=== PATIENT | female | born 2000 | race Caucasian/White ===

== ENCOUNTER → 2023-10-15 09:51 | Outpatient (BNVA) | payer MEDICAID, SELFPAY | PROVIDERS: Family Provider Nurse Practitioner Family; PCP Nurse Practitioner Family; Referring Provider Registered Nurse; Visit Provider Nurse Practitioner Women's Health | DX: Z34.90 Encounter for supervision of normal pregnancy, unspecified, unspecified trimester (principal) | CPT/HCPCS: 81000; 84702; 85025; 86850; 86900 ==

== ENCOUNTER → 2023-10-18 14:00 | Outpatient (BNVA) | payer MEDICAID, SELFPAY | PROVIDERS: Family Provider Nurse Practitioner Family; PCP Nurse Practitioner Family; Visit Provider Obstetrics & Gynecology | DX: Z32.01 Encounter for pregnancy test, result positive (principal) | CPT/HCPCS: 84702 ==

== ENCOUNTER → 2023-10-22 10:02 | Outpatient (BNVA) | payer MEDICAID, SELFPAY | PROVIDERS: Family Provider Nurse Practitioner Family; PCP Nurse Practitioner Family; Visit Provider Obstetrics & Gynecology | DX: Z36.87 Encounter for antenatal screening for uncertain dates (principal) | CPT/HCPCS: 76817 ==

== ENCOUNTER → 2023-11-05 08:55 | Outpatient (BNVA) | payer MEDICAID, SELFPAY | PROVIDERS: Family Provider Nurse Practitioner Family; PCP Nurse Practitioner Family; Visit Provider Nurse Practitioner Women's Health | DX: Z34.90 Encounter for supervision of normal pregnancy, unspecified, unspecified trimester (principal) | CPT/HCPCS: 80307; 84315; 84439; 84443; 84481; 85025; 86592; 86762; 86803; 86850; 86900; 87086; 87340; 87491; 87591; 87806 ==

== ENCOUNTER → 2023-11-26 14:40 | Outpatient (BNVA) | payer MEDICAID, SELFPAY | PROVIDERS: Family Provider Nurse Practitioner Family; PCP Nurse Practitioner Family; Visit Provider Obstetrics & Gynecology | DX: Z34.90 Encounter for supervision of normal pregnancy, unspecified, unspecified trimester (principal) | CPT/HCPCS: 84315; 88175 ==

== ENCOUNTER → 2024-01-22 09:17 | Outpatient (BNVA) | payer MEDICAID, SELFPAY | PROVIDERS: Family Provider Nurse Practitioner Family; PCP Nurse Practitioner Family; Visit Provider Obstetrics & Gynecology | DX: Z34.92 Encounter for supervision of normal pregnancy, unspecified, second trimester (principal) | CPT/HCPCS: 76805 ==

== ENCOUNTER → 2024-02-18 08:31 | Outpatient (BNVA) | payer MEDICAID, SELFPAY | PROVIDERS: Family Provider Nurse Practitioner Family; PCP Nurse Practitioner Family; Visit Provider Obstetrics & Gynecology | DX: Z34.01 Encounter for supervision of normal first pregnancy, first trimester (principal) | CPT/HCPCS: 76816; 82950; 84315; 85025; 87491; 87591 ==

== ENCOUNTER → 2024-03-17 07:47 | Outpatient (BNVA) | payer BC, MEDICAID, SELFPAY | PROVIDERS: Family Provider Nurse Practitioner Family; PCP Nurse Practitioner Family; Visit Provider Obstetrics & Gynecology | DX: O21.9 Vomiting of pregnancy, unspecified (principal); O26.892 Other specified pregnancy related conditions, second trimester; Z67.91 Unspecified blood type, Rh negative; Z3A.09 9 weeks gestation of pregnancy; Z3A.28 28 weeks gestation of pregnancy | CPT/HCPCS: 84315; 85025 ==

== ENCOUNTER → 2024-05-12 07:45 | Outpatient (BNVA) | payer BC, MEDICAID, SELFPAY | PROVIDERS: Family Provider Nurse Practitioner Family; PCP Nurse Practitioner Family; Visit Provider Obstetrics & Gynecology | DX: Z34.90 Encounter for supervision of normal pregnancy, unspecified, unspecified trimester (principal) | CPT/HCPCS: 84315; 87081 ==

== ENCOUNTER 2024-05-19 09:57 | Outpatient (CLI) | payer BC, MEDICAID, SELFPAY ==
[2024-05-19 10:16] VITALS: BP 133/77; PULSE 100
[2024-05-19 10:31] VITALS: BP 130/61; PULSE 77
[2024-05-19 10:46] VITALS: BP 125/58; PULSE 82
[2024-05-19 10:51] VITALS: BMI 40.4
[2024-05-19 11:01] VITALS: BP 123/60; PULSE 80
== END 2024-05-19 11:26 | disposition home or self-care (01) ==
LOC: OPOB 10:00 → OBGYN 10:02
PROVIDERS: Visit Provider Obstetrics & Gynecology
DX: O16.9 Unspecified maternal hypertension, unspecified trimester (principal); Z3A.00 Weeks of gestation of pregnancy not specified
CPT/HCPCS: 59025; 84315

== ENCOUNTER 2024-06-05 02:23 | Inpatient (IN) | payer BC, MEDICAID, SELFPAY ==
[2024-06-04] VITALS (13 sets, daily range): BP systolic 121–188; BP diastolic 63–105; PULSE 74–102; BMI 42.0
[2024-06-04] MEDS: lactated ringers 1,000 ML 999 ML IV (22:45)
[2024-06-04 22:56] LABS: Basophils # 0.1 10^3/uL (0.0-0.1); Basophils % 0.4 %; Eosinophils # 0.1 10^3/uL (0.0-0.8); Eosinophils % 0.5 %; Hematocrit 32.8 % (36-47); Lymphocytes # 2.5 10^3/uL (0.8-4.8); Mean Corpuscular HGB Conc 33.2 g/dL (30-55); Mean Corpuscular Hemoglobin 29.3 pg (27-33); Mean Corpuscular Volume 88.2 fl (85-98); Mean Platelet Volume 10.6 fL (7.4-10.4); Monocytes # 0.9 10^3/uL (0.2-0.9); Monocytes % 6.5 %; Neutrophils # 10.42 10^3/uL (1.8-7.7); Neutrophils % 74.2 %; Nucleated Red Blood Cells % 0 %; Platelet Count 308 10^3/cmm (157-399); Red Blood Count 3.72 10^6/uL (3.85-5.65); Red Cell Distribution Width 13.7 % (12.1-15.1); White Blood Count 14.03 10^3/uL (3.29-11.43)
[2024-06-05] VITALS (123 sets, daily range): BP systolic 103–164; BP diastolic 51–115; PULSE 60–214; RESP 16–18; TEMP 36–36.2; O2SAT 82–99
[2024-06-05] MEDS: fentaNYL 50 mcg/mL INJ 2mL IVP ×3 (02:34→07:17)
--- NOTE | 2024-06-05 02:35 | P.HP_ITS ---
Providers/Chief Complaint 2 Admitting Physician: Boris Mason MD Primary BALANCE WHEEL FACER: Boris Mason MD Chief Complaint: contractions HPI BALANCE WHEEL FACER History of Present Illness Lata Mccauley is a 24 year old female 24 y.o. G1 EDC June 08, 2024 At 39 w 4 d No complications Presents to L&D c/o painful, regular uterine contractions No bleeding or fluid leakage + movements Present Details : 1 Para: 0 Labs Rubella: Immune RPR: Negative GBS: Negative Medications/Allergies Home Medications Medication Instructions Recorded Confirmed Last Taken Type PNV 153-FA 400 mcg-om3 35 mg-dha 1 tab PO DAILY 02/18/24 06/02/24 05/19/24 History 25 mg-epa 5 mg-fish oil chew tablet ( Gummies) Allergies Allergy/AdvReac Type Severity Reaction Status Date / Time No Known Allergies Allergy Verified 06/04/24 20:20 PFSH BALANCE WHEEL FACER 2 PFSH: Family History Grandmother Breast cancer Grandfather Colon cancer Heart disease High cholesterol Stroke Diabetes Father Hypertension Diabetes Denies family history of Ovarian cancer Depression Uterine cancer Thyroid disease Social History Smoking and tobacco/nicotine status: former use of tobacco/nicotine History History History 2 1 Term 0 0 Miscarriages/Ectopic 0 Living Children 0 Care DAMON Calculator 2 Estimated Delivery Date Method Current WG Current Estimate 06/08/24 Ultrasound #1 39w 4d Other Estimates 05/27/24 LMP (Certain) 41w 2d Vitals/I&O/Wt Last Vital Signs Temp 96.8 F L 06/05/24 11:01 Pulse 64 06/05/24 14:39 Resp 16 06/05/24 10:00 BP 109/56 06/05/24 14:39 Pulse Ox 94 06/05/24 09:49 O2 Del Method Room Air 06/05/24 07:49 06/04/24 06/05/24 06/05/24 22:59 06:59 14:59 Intake Total 2058.483 / 2058.483 Balance 2058.483 / 2058.483 Weight last 48 hrs Weight 230 lb Physical Exam 2 Narrative: Weight 231 lbs; 5?2? VS normal General crying due to pain from contractions Lungs: clear Cor: RRR FH 37 cm, cephalic Cervix: 1 cm / 50% / -3 / posterior Ext: no edema External monitor: + regular uterine contractions heart tracing good variability, + accelerations Urinary Catheter Management: Craig Latex: Cath Placed During This Visit: yes Urinary Catheter Date of Insertion: 06/05/24 Urinary Catheter Time of Insertion: 09:54 Data 06/04/24 22:30 Results Labs OB ([facility]): 2 Obstetrics US 02/18/24 Blood Type O Negative 06/04/24 Antibody Screen Negative 06/04/24 Hct 32.8 % (36-47) L 06/04/24 Hgb 10.90 g/dL (11.27-16.99) L 06/04/24 Rho(D) Type Rh negative 06/04/24 Plt Count 308 10^3/cmm (157-399) 06/04/24 Hep Bs Antigen Non-reactive (Nonreactive) 11/05/23 Hepatitis C Antibody Non-reactive (Nonreactive) 11/05/23 Rubella IgG Antibody 161.1 IU/mL (0.0-10.0) H 11/05/23 RPR Nonreactive (Nonreactive) 11/05/23 HIV 1&2 Ab & HIV 1 Ag Non-reactive (Non-Reactiv) 11/05/23 TSH 0.93 uIU/mL (0.27-4.20) 11/05/23 Free T4 1.19 ng/dL (0.82-1.77) 11/05/23 C.trachomatis RNA (TMA) Not detected (NOT DETECTED) N.gonorrhoeae RNA (TMA) Not detected (NOT DETECTED) T. vaginalis Amp RNA Not detected (NOT DETECTED) 02/18/24 Chlamydia/GC Comment See note 02/18/24 Glucose 1 Hr 50 gm 129 mg/dL (85-140) 02/18/24 Ser , Semi-Qnt 89921.00 mIU/mL 10/18/23 Urine Opiates Screen Negative ng/mL (Negative) 11/05/23 Ur Barbiturates Screen Negative ng/mL (Negative) 11/05/23 Ur Phencyclidine Scrn Negative ng/mL (Negative) 11/05/23 Ur Amphetamines Screen Negative ng/mL (Negative) 11/05/23 U Benzodiazepines Scrn Negative ng/mL (Negative) 11/05/23 Urine Cocaine Screen Negative ng/mL (Negative) 11/05/23 U Marijuana (THC) Screen Negative ng/mL (Negative) 11/05/23 Micro Urine Specimen 11/05/23 Pap Smear Interpret See note 11/26/23 A&P Assessment and plan (1) : 39 w 4 d With painful, regular uterine contractions Plan admit Expectant management Qualifiers: Weeks of gestation: 9 weeks Qualified Code(s): Z3A.09 - 9 weeks gestation of (2) Rh negative status during : Qualifiers: Trimester: second trimester Qualified Code(s): O26.892 - Other specified related conditions, second trimester; Z67.91 - Unspecified blood type, Rh negative Attestations 2 Medical Necessity Statement*: patient at 39 w 4 d, with painful uterine contractions Coding Level of Care Code Acute Code for Chg Fwd Diagnoses 9 weeks gestation of Z3A.09 Weeks of gestation: 9 weeks Rh negative status during in second trimester O26.892; Z67.91 Trimester: second trimester Time Spent (min) 60
--- NOTE | 2024-06-05 07:10 | P.PN_ITS ---
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 Subjective: Interval history: Fetus reassuring Feels painful, strong uterine contractions Patient crying Cervix: 1 cm / 50% / -3 / posterior Patient requests epidural Plan epidural Plan Pitocin per protocol Labor: Station: -3 Amniotic Membrane Status: Intact Monitor Mode: Palpation Contraction Pattern: Irregular Status: Category I Vitals/I&O/Wt Last Vital Signs Temp 96.8 F L 06/05/24 11:01 Pulse 73 06/05/24 14:53 Resp 16 06/05/24 10:00 BP 135/80 06/05/24 14:53 Pulse Ox 94 06/05/24 09:49 O2 Del Method Room Air 06/05/24 07:49 06/04/24 06/05/24 06/05/24 22:59 06:59 14:59 Intake Total 2058.483 / 2058.483 Balance 2058.483 / 2058. Weight last 48 hrs Weight 230 lb Physical Exam 2 Urinary Catheter Management: Craig Latex: Cath Placed During This Visit: yes Urinary Catheter Date of Insertion: 06/05/24 Urinary Catheter Time of Insertion: 09:54 Data 06/04/24 22:30 A&P Assessment and plan (1) Active labor: Attestations 2 Medical Necessity Statement*: patient at 39 w 4 d, admitted with painful contractions Coding Level of Care Code Acute Code for Chg Fwd Diagnoses Active labor Time Spent (min) 30
[2024-06-05] MEDS: lactated ringers 1,000 ML 999 ML IV ×2 (07:17→08:19)
[2024-06-05] MEDS: ROPivacaine syringe 100 MG/50 ML SYRINGE 10 MG EPIDURAL ×4 (09:09→21:12)
--- NOTE | 2024-06-05 09:30 | PC.NURSE ---
Epidural attempt x5 per Dr Aldridge. 6th attempt by Tim Richardson CRNA successful.
[2024-06-05] MEDS: dextrose 5%-lactated ringers 1,000 ML 125 ML IV ×2 (10:01→17:18)
[2024-06-05] MEDS: oxytocin 30 UNIT/500 ML BAG IV (10:01)
--- NOTE | 2024-06-05 10:15 | P.ANESASSM_ITS ---
Pre-Anesthetic Assessment Height/Weight: Height 1.57 m Weight 104.326 kg Temp Pulse Resp BP Pulse Ox O2 Del Method 97.2 F L 93 18 113/67 94 Room Air 06/05/24 09:11 06/05/24 10:08 06/05/24 07:17 06/05/24 10:08 06/05/24 09:49 06/05/24 07:49 Epidural Familial anesthetic complications: None Was Beta Adam taken within 24 hours: N/A Was Clonidine taken within 24 hours: N/A Social No alcohol and No tobacco Exam alert, oriented x 3, clear to auscultation bilaterally and regular rate & rhythm Airway Mallampati: Class III Dentition: full Anesthetic Plan ASA status: 2 Anesthesia: Regional (specify below) Risk of > 500 ml blood loss (7ml/kg in children): No Medications/Allergies Home Medications Medication Instructions Recorded Confirmed Last Taken Type PNV 153-FA 400 mcg-om3 35 mg-dha 1 tab PO DAILY 02/18/24 06/02/24 05/19/24 History 25 mg-epa 5 mg-fish oil chew tablet ( Gummies) Allergies Allergy/AdvReac Type Severity Reaction Status Date / Time No Known Allergies Allergy Verified 06/04/24 20:20 Current Medications Generic Name Dose Route Start Last Admin Trade Name Freq PRN Reason Stop Dose Admin Fentanyl 25 - 100 mcg 06/05/24 01:03 06/05/24 07:17 Fentanyl 50 Mcg/Ml Inj 2ml IVP 75 mcg Q1H PRN Administration SEVERE PAIN Dextrose/Lactated Ringer's 1,000 mls @ 125 mls/hr 06/05/24 01:15 06/05/24 10:01 Dextrose 5%-Lactated Ringers IV 125 mls/hr .Q8H TERRELL Administration Lactated Ringer's 1,000 mls @ 999 mls/hr 06/05/24 01:03 06/05/24 08:19 Lactated Ringers IV Infused .Q1H1M PRN Infusion Per L&D Rescitation Protocol Lactated Ringer's 1,000 mls @ 999 mls/hr 06/05/24 07:14 06/05/24 08:54 Lactated Ringers IV 500 mls/hr .Q1H1M PRN Infusion See label comments Ropivacaine 100 mg in 50 mls @ 10 mls/hr 06/05/24 07:15 06/05/24 09:09 Naropin Syringe EPIDURAL 10 mls/hr .Q5H TERRELL Administration Oxytocin 30 unit in 500 mls @ 1 mls/hr 06/05/24 07:45 06/05/24 10:01 Pitocin IV 1 milliunit/min .Q24H TERRELL 1 mls/hr Administration Protocol 1 MILLIUNIT/MIN PFSH Anesthesia Family History Grandmother Breast cancer Grandfather Colon cancer Heart disease High cholesterol Stroke Diabetes Father Hypertension Diabetes Denies family history of Ovarian cancer Depression Uterine cancer Thyroid disease Social History Smoking and tobacco/nicotine status: former use of tobacco/nicotine Female Reproductive History : 1 Data Anesthesia 06/04/24 22:30 Short CBC 06/04/24 Range/Units 22:30 WBC 14.03 H (3.29-11.43) 10^3/uL Hgb 10.90 L (11.27-16.99) g/dL Hct 32.8 L (36-47) % MCV 88.2 (85-98) fl Plt Count 308 (157-399) 10^3/cmm Neut % (Auto) 74.2 % Neut # (Auto) 10.42 H (1.8-7.7) 10^3/uL Blood Bank 06/04/24 22:30 Blood Type O Negative Rho(D) Type Rh negative Antibody Screen Negative Cardiac Studies: 2 No Data to Display
--- NOTE | 2024-06-05 10:16 | ANES.PROC ---
Anesthesia Procedures Procedure/Date: 06/05/24 Epidural: Time Out Performed: Yes Consents Signed: Procedure Consent and NPO Consent Consent: requested by attending/covering physician, from patient, from other, risks and benefits reviewed, patient agrees to proceed and emergency procedure Lumbar Level: L3-L4 Epidural position: sitting Epidural procedure: sterile prep of area, 1% lidocaine to numb the area, 18 g needle, negative for paresthesia passed, neg for paresthesia, test dose given, 1.5% xylocaine 1:200k epi (5 cc), 0.2% Ropivacaine bolus ml (5 cc), placed PCEA, no systemic response, sterile dressing applied, L.U.D. no apparent complications and 0.2% Ropiavacaine @ mls/hr (10) Additional Comments: Multiple attempts at several levels. Patient tolerated attempts well. With patient re-positioning during a break in the procedure, it became apparent that several of insertion site attempts were actually made off midline. Successful placement by Tim EastmanR.N.Nathen upon arrival with first pass attempt at L2/3
--- NOTE | 2024-06-05 14:15 | P.PN_ITS ---
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 4 cm Continue pitocin Labor: Station: -3 Amniotic Membrane Status: Intact Monitor Mode: Palpation Contraction Pattern: Irregular Status: Category I Vitals/I&O/Wt Last Vital Signs Temp 96.8 F L 06/05/24 11:01 Pulse 73 06/05/24 14:53 Resp 16 06/05/24 10:00 BP 135/80 06/05/24 14:53 Pulse Ox 94 06/05/24 09:49 O2 Del Method Room Air 06/05/24 07:49 06/05/24 06/05/24 06/05/24 06:59 14:59 22:59 Intake Total 2058.483 / 2058.483 Balance 483 Weight last 48 hrs Weight 230 lb Physical Exam 2 Urinary Catheter Management: Craig Latex: Cath Placed During This Visit: yes Urinary Catheter Date of Insertion: 06/05/24 Urinary Catheter Time of Insertion: 09:54 Data 06/04/24 22:30 A&P Assessment and plan (1) Active labor: Attestations 2 Medical Necessity Statement*: patient at 39 w 4 d, admitted with active labor Coding Level of Care Code Acute Code for Chg Fwd Diagnoses Active labor Time Spent (min) 20
--- NOTE | 2024-06-05 17:05 | P.PN_ITS ---
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 Subjective: Interval history: Fetus reassuring Comfortable with epidural Cervix: 5 cm / 90 / -3 / BBOW Pitocin at 6 mU Continue Pitocin Labor: Station: -2 Amniotic Membrane Status: Ruptured Monitor Mode: External Contraction Pattern: Regular Status: Category I Vitals/I&O/Wt Last Vital Signs Temp 97.0 F L 06/05/24 16:58 Pulse 88 06/06/24 06:37 Resp 17 06/05/24 17:12 BP 139/75 06/06/24 06:37 Pulse Ox 94 06/05/24 09:49 O2 Del Method Room Air 06/05/24 07:49 06/05/24 06/05/24 06/06/24 14:59 22:59 06:59 Intake Total 2058.483 / 2058.483 1040.251 / 3099.734 1110.333 / 4210.067 Output Total 1400 / 1400 1200 / 2600 Balance 2058.483 / 2058.483 -359.749 / 1699.734 -89.667 / 1610.067 Weight last 48 hrs Weight 230 lb Physical Exam 2 Urinary Catheter Management: Craig Latex: Cath Placed During This Visit: yes Reason for Continuing Indwelling Catheter: Acute Urinary Retention or Obstruction Urinary Catheter Date of Insertion: 06/05/24 Urinary Catheter Time of Insertion: 09:54 Data 06/04/24 22:30 A&P Assessment and plan (1) Active labor: Attestations 2 Medical Necessity Statement*: patient at 39 w 5 d, admitted with active labor Coding Level of Care Code Acute Code for Chg Fwd Diagnoses Active labor Time Spent (min) 20
[2024-06-06] VITALS (54 sets, daily range): BP systolic 96–168; BP diastolic 43–107; PULSE 58–129; RESP 16–17; TEMP 36.7–37.4; O2SAT 97–99
[2024-06-06] MEDS: dextrose 5%-lactated ringers 1,000 ML 125 ML IV ×2 (00:28→15:54)
[2024-06-06] MEDS: ROPivacaine syringe 100 MG/50 ML SYRINGE 10 MG EPIDURAL ×3 (00:28→06:40)
--- NOTE | 2024-06-06 06:20 | PM.OBGYPN ---
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 9 cm / 100 % / -2 Labor: Station: -2 Amniotic Membrane Status: Ruptured Monitor Mode: External Contraction Pattern: Regular Status: Category I Vitals/I&O/Wt Last Vital Signs Temp 97.0 F L 06/05/24 16:58 Pulse 88 06/06/24 06:37 Resp 17 06/05/24 17:12 BP 139/75 06/06/24 06:37 Pulse Ox 94 06/05/24 09:49 O2 Del Method Room Air 06/05/24 07:49 06/05/24 06/05/24 06/06/24 14:59 22:59 06:59 Intake Total 2058.483 / 2058.483 1040.251 / 3099.734 1110.333 / 4210.067 Output Total 1400 / 1400 1200 / 2600 Balance 2058.483 / 2058.483 -359.749 / 1699.734 -89.667 / 1610.067 Weight last 48 hrs Weight 230 lb Physical Exam Urinary Catheter Management: Craig Latex: Cath Placed During This Visit: yes Reason for Continuing Indwelling Catheter: Acute Urinary Retention or Obstruction Urinary Catheter Date of Insertion: 06/05/24 Urinary Catheter Time of Insertion: 09:54 Data 06/04/24 22:30 A&P Assessment and plan (1) Active labor: Attestations Medical Necessity Statement*: patient at 39 w 5 d, admitted with active labor Coding Level of Care Code Acute Code for Chg Fwd Diagnoses Active labor Time Spent (min) 20
[2024-06-06] MEDS: ondansetron 2 mg/ML SDV 2 mL 4 MG IVP (07:40)
--- NOTE | 2024-06-06 11:35 | P.PN_ITS ---
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 2 Subjective: Interval history: Feeling strong UCs Fetus reassuring Cervix unchanged at 8-9 cm / 100 % / -2 Cervix has not changed in more than 4 hours will proceed with for delivery due to failure to progress procedure and risks explained to patient risks include, but not limited to infection, bleeding, injury to internal organs, anesthesia, blood transfusions patient understands and wants to proceed Labor: Station: -2 Amniotic Membrane Status: Ruptured Monitor Mode: External Contraction Pattern: Regular Status: Category I Vitals/I&O/Wt Last Vital Signs Temp 97.0 F L 06/05/24 16:58 Pulse 106 H 06/06/24 12:07 Resp 17 06/05/24 17:12 BP 145/89 06/06/24 12:07 Pulse Ox 94 06/05/24 09:49 O2 Del Method Room Air 06/06/24 08:26 06/05/24 06/06/24 06/06/24 22:59 06:59 14:59 Intake Total 1040.251 / 3099.734 1110.333 / 4210.067 50 / 50 Output Total 1400 / 1400 1200 / 2600 Balance -359.749 / 1699.734 -89.667 / 1610.067 50 / 50 Weight last 48 hrs Weight 230 lb Physical Exam 2 Urinary Catheter Management: Craig Latex: Cath Placed During This Visit: yes Reason for Continuing Indwelling Catheter: Acute Urinary Retention or Obstruction Urinary Catheter Date of Insertion: 06/05/24 Urinary Catheter Time of Insertion: 09:54 Data 06/04/24 22:30 A&P Assessment and plan (1) Active labor: Attestations 2 Medical Necessity Statement*: patient at 39+ weeks, admitted with active labor Coding Level of Care Code Acute Code for Chg Fwd Diagnoses Active labor Time Spent (min) 45
[2024-06-06] MEDS: ROPivacaine syringe 100 MG/50 ML SYRINGE EPIDURAL (11:40)
[2024-06-06] MEDS: citric acid-sodium citrate 30 mL UDC PO (12:03)
[2024-06-06] MEDS: ceFAZolin 2,000 mg SDV 2000 MG IVP (12:05)
[2024-06-06] MEDS: famotidine 20 mg/2 mL INJ IVP (12:06)
[2024-06-06] MEDS: metoclopramide 5 mg/mL SDV 2 mL 10 MG IVP (12:06)
--- NOTE | 2024-06-06 12:10 | P.ANESUD_ITS ---
Pre-Anesthetic Update Pre-Anesthetic Assessment: Date of Surgery/Procedure: 06/06/24 Proposed Procedure: Section Any changes to Pre-Anesthetic Assessment?: No Changes from Pre- Anesthetic Assessment: Failure to progress patient reports eating a popsicle at 1030. Current epidural has been running for 27 hours inadequate analgesia at this time decision made to stop epidural and perform a SAB given mother and baby are both stable, FHT pattern reassuring. Last Intake: 1030- clears meal over 24 hours. Labs Last 48hrs: Short CBC 06/04/24 Range/Units 22:30 WBC 14.03 H (3.29-11.43) 10^ 3/uL Hgb 10.90 L (11.27-16.99) g/ dL Hct 32.8 L (36-47) % MCV 88.2 (85-98) fl Plt Count 308 (157-399) 10^3/c mm Neut % (Auto) 74.2 % Neut # (Auto) 10.42 H (1.8-7.7) 10^3/u L Blood Bank 06/04/24 22:30 Blood Type O Negative Rho(D) Type Rh negative Antibody Screen Negative Vitals: Temperature 97.0 F L 06/05/24 16:58 Pulse Rate 106 H 06/06/24 12:07 Pulse Rhythm Regular 06/05/24 20:00 Pulse Strength 3+ Normal 06/05/24 20:00 Respiratory Rate 17 06/05/24 17:12 Respiratory Effort Spontaneous, Non- Labored 06/05/24 07:49 Respiratory Depth Normal 06/05/24 07:49 Respiratory Patter n Normal 06/05/24 07:49 Blood Pressure 145/89 06/06/24 12:07 Pulse Oximetry 94 06/05/24 09:49 Oxygen Delivery Me thod Room Air 06/06/24 08:26 Cardiac Studies: No Data to Display
--- NOTE | 2024-06-06 14:55 | PM.OP ---
Operative Report Date of procedure: June 06, 2024 Pre-op diagnosis: 39 w 5 d Active labor Pitocin augmentation Cervix 8-9 cm / -2 station No progress despite adequate uterine contractions x more than 5 hours Post-op diagnosis: 39 w 5 d Active labor Pitocin augmentation Cervix 8-9 cm / -2 station No progress despite adequate uterine contractions x more than 5 hours Large caput Post-op findings: Vigorous male with large caput Mild meconium-stained amniotic fluid normal uterus, tubes, and ovaries Procedure done: primary low-transverse Implants: none Specimens removed/disposition: placenta and cord, discarded Surgeon: Boris Mason MD Anesthesia: Spinal Estimated blood loss (mL): 400 Complications: none Condition: stable Disposition: floor Brief History: 23 y.o. at 39 w 4 d admitted with active labor Cx progressed from 1 cm to 8-9 cm / -2 Failure to progress despite adequate uterine contractions heart tracing reassuring throughout Procedure: The patient was taken to the operating room and placed supine in the left lateral tilt position. Spinal anesthesia and a jackson catheter were already in place. Time-out verification was carried Out. The abdomen was prepped and draped in the usual sterile fashion. A Pfannenstiel incision was made and carried down through skin and subcutaneous tissue and fascia. The fascial incision was extended laterally with Carpenter scissors. The fascia was from the underlying rectus muscles. The rectus muscles were split in the midline. The peritoneum was entered bluntly avoiding underlying organs. A bladder flap was created. An Mehdi-O retractor was placed. A low-transverse uterine incision was made and extended laterally and bluntly avoiding the uterine vessels. Moderate meconium-stained amniotic fluid was encountered. The baby was delivered in cephalic presentation atraumatically. Large caput noted. The baby was suctioned, the cord was clamped and cut and the baby was handed to pediatric staff. The placenta was manually removed intact. The uterine cavity was bluntly curetted with wet laps. The uterine incision was then closed with a continuous interlocking stitch of O-chromic. Adequate hemostasis was seen. Inspection of the uterine incision again showed good hemostasis. The fascia was then closed with a continuous stitch of O-Vicryl. Additional interrupted stitches of O-Vicryl were used for fascial closure. The subcutaneous tissue was irrigated and inspected for hemostasis. The skin was then closed with Insorb rodrigo. Postoperative condition: stable EBL: 400 cc Complications: none Sponge and instruments counts correct x two
[2024-06-06] MEDS: ketorolac 30 mg/mL INJ IVP ×2 (16:26→22:29)
--- NOTE | 2024-06-06 18:48 | PC.NURSE ---
11:45 Anesthesia stopped epidural pump to place Spinal instead of using epidural due ineffective pain control. Anesthesia (Shane JULIO) stated We need the epidural to wear off before we go back to , so the spinal will work appropriately. 12:24 Shane JULIO stated we can go back now to the OR 12:31 OR room time
[2024-06-07 00:45] VITALS: BP 109/66; PULSE 80; RESP 16; TEMP 37.2; O2SAT 99
[2024-06-07] MEDS: dextrose 5%-lactated ringers 1,000 ML 125 ML IV (01:37)
[2024-06-07 01:50] LABS: Hematocrit 27.1 % (36-47); Mean Corpuscular HGB Conc 31.7 g/dL (30-55); Mean Corpuscular Hemoglobin 28.7 pg (27-33); Mean Corpuscular Volume 90.3 fl (85-98); Mean Platelet Volume 10.1 fL (7.4-10.4); Platelet Count 228 10^3/cmm (157-399); Red Cell Distribution Width 14.3 % (12.1-15.1); White Blood Count 13.23 10^3/uL (3.29-11.43)
[2024-06-07] MEDS: ketorolac 30 mg/mL INJ IVP (04:31)
[2024-06-07 04:39] VITALS: BP 103/57; PULSE 65; RESP 17; TEMP 36.9; O2SAT 96
[2024-06-07] MEDS: PRENATAL VIT NO.130/IRON/FOLIC 1 EACH TABLET PO (08:42)
[2024-06-07] MEDS: docusate sodium 100 mg Capsule PO ×2 (08:42→21:18)
[2024-06-07] MEDS: ferrous sulfate EC 325 mg Tablet PO (08:42)
[2024-06-07 09:09] VITALS: BP 116/69; PULSE 63; RESP 15; TEMP 36.8
--- NOTE | 2024-06-07 13:36 | P.PN_ITS ---
Subjective 2 Subjective: Mrs. Mccauley 24-year-old female status post primary low-transverse delivery postoperative day 1. Feeling okay but incision more noticeable today. Vitals/I&O/Wt Last Vital Signs Temp 98.3 F 06/07/24 09:09 Pulse 63 06/07/24 09:09 Resp 15 06/07/24 09:09 BP 116/69 06/07/24 09:09 Pulse Ox 96 06/07/24 04:39 O2 Del Method Room Air 06/07/24 04:39 06/06/24 06/07/24 06/07/24 22:59 06:59 14:59 Intake Total 1000 / 2187.833 Output Total 300 / 350 400 / 750 450 / 450 Balance -300 / 837.833 600 / 1437.833 -450 / -450 Physical Exam 2 Narrative: GA; alert and oriented x 3 HEENT: normal Breasts: engorged Nipples - skin intact Lungs; clear to auscultation Heart: regular rhythm, no murmurs. Abd: Appropriately tender. BS+. Uterine fundus below umbilicus. No Fundal Tenderness, incision clean and dry, no redness, pain or edema. Perineum: normal lochia. Extremities: no edema, no cyanosis, no tenderness. Urinary Catheter Management: Craig Latex: Cath Placed During This Visit: yes, but has since been removed by the nurse Reason for Continuing Indwelling Catheter: Decision to DC Catheter Urinary Catheter Date of Insertion: 06/05/24 Urinary Catheter Time of Insertion: 09:54 Date Urinary Catheter Removed: 06/07/24 Time Urinary Catheter Discontinued: 04:39 Data 06/07/24 01:44 A&P Assessment and plan (1) delivery, delivered, current hospitalization: Status post delivery postoperative day 1. Afebrile and hemodynamically stable. Tolerating diet well. Ambulating without difficulty. Plan Continue postop observation Attestations 2 Medical Necessity Statement*: In my professional opinion per admitting diagnosis. Coding Level of Care Code Acute Code for Chg Fwd Diagnoses delivery, delivered, current hospitalization O82
[2024-06-07] MEDS: HYDROcodone-acetaminophen 5-325 mg Tablet PO (14:21)
[2024-06-07] MEDS: ibuprofen 800 mg tablet PO ×2 (14:22→21:18)
[2024-06-07 15:11] VITALS: BP 126/67; PULSE 105; RESP 17; TEMP 37.6; O2SAT 97
[2024-06-07 22:36] VITALS: BP 113/53; PULSE 97; RESP 16; TEMP 36.8; O2SAT 97
[2024-06-08 05:30] VITALS: BP 138/81; PULSE 85; RESP 17; TEMP 37.5; O2SAT 99
--- NOTE | 2024-06-08 08:00 | ANE.PACU2 ---
Inpatient post-anesthesia follow up: Airway intact: Yes Vital signs: Temperature 98.2 F Pulse Rate 76 Respiratory Rate 16 Blood Pressure 131/81 Pulse Oximetry 98 Oxygen Delivery Me thod Room Air Oxygen Flow Rate Fraction of Inspir ed Oxygen Hydration adequate: Yes Nausea and vomiting: No Pain level: 1 Mental status: Baseline Epidural Start/End: Epidural Start Date: 06/05/24 Epidural Start Time: 08:05 Epidural End Date: 06/06/24 Epidural End Time: 12:31
[2024-06-08] MEDS: PRENATAL VIT NO.130/IRON/FOLIC 1 EACH TABLET PO (09:00)
[2024-06-08] MEDS: ibuprofen 800 mg tablet PO (09:00)
[2024-06-08] MEDS: docusate sodium 100 mg Capsule PO (09:00)
--- NOTE | 2024-06-08 10:14 | P.DS_ITS ---
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 Mccauley 24-year-old female admitted in early labor. She received oxytocin for labor augmentation had a slow progress of labor and a primary low- transverse delivery was performed due to failure to progress. She delivered a male infant with a birthweight of 3465 g, Apgars 8/9. She is afebrile and hemodynamically stable postoperative day 2. Ambulating without difficulty. Tolerating diet well. She was counseled regarding pelvic rest for 6 weeks (no sex, no tampons, no vaginal douches). Return to the emergency room if any fever, increased bleeding or pain. Information Peripartum Data: Infant Delivery Method: Physical Exam Narrative: GA; alert and oriented x 3 HEENT: normal Breasts: engorged Nipples - skin intact Lungs; clear to auscultation Heart: regular rhythm, no murmurs. Abd: Appropriately tender. BS+. Uterine fundus below umbilicus. No Fundal Tenderness, incision clean and dry, no redness, pain or edema. Perineum: normal lochia. Extremities: no edema, no cyanosis, no tenderness. Urinary Catheter Management: Craig Latex: Cath Placed During This Visit: yes, but has since been removed by the nurse Reason for Continuing Indwelling Catheter: Decision to DC Catheter Urinary Catheter Date of Insertion: 06/05/24 Urinary Catheter Time of Insertion: 09:54 Date Urinary Catheter Removed: 06/07/24 Time Urinary Catheter Discontinued: 04:39 History History History 1 Term 0 0 Miscarriages/Ectopic 0 Living Children 0 Discharge Data Studies Completed and Pending Pending at discharge Category Date Time Status Complete Crossmatch Stat Lab 06/08/24 06:40 Results Rho D Immune Globulin Stat Lab 06/08/24 06:40 Results Type and Screen Stat Lab 06/08/24 06:40 Results Laboratory Results WBC 13.23 10^3/uL (3.29-11.43) H 06/07/24 01:44 RBC 3.00 10^6/uL (3.85-5.65) L 06/07/24 01:44 Hgb 8.60 g/dL (11.27-16.99) L 06/07/24 01:44 Hct 27.1 % (36-47) L 06/07/24 01:44 MCV 90.3 fl (85-98) 06/07/24 01:44 MCH 28.7 pg (27-33) 06/07/24 01:44 MCHC 31.7 g/dL (30-55) 06/07/24 01:44 RDW 14.3 % (12.1-15.1) 06/07/24 01:44 Plt Count 228 10^3/cmm (157-399) 06/07/24 01:44 MPV 10.1 fL (7.4-10.4) 06/07/24 01:44 Neut % (Auto) 74.2 % 06/04/24 22:30 Lymph % (Auto) 18.0 % 06/04/24 22:30 [place] % (Auto) 6.5 % 06/04/24 22:30 Eos % (Auto) 0.5 % 06/04/24 22:30 Baso % (Auto) 0.4 % 06/04/24 22:30 Neut # (Auto) 10.42 10^3/uL (1.8-7.7) H 06/04/24 22:30 Lymph # (Auto) 2.5 10^3/uL (0.8-4.8) 06/04/24 22:30 [place] # (Auto) 0.9 10^3/uL (0.2-0.9) 06/04/24 22:30 Eos # (Auto) 0.1 10^3/uL (0.0-0.8) 06/04/24 22:30 Baso # (Auto) 0.1 10^3/uL (0.0-0.1) 06/04/24 22:30 Nucleated RBC % (auto) 0 % 06/04/24 22:30 Nucleated RBCs # 0.0 /100WBC 06/04/24 22:30 Blood Type O Negative 06/08/24 06:40 Rho(D) Type Rh negative 06/08/24 06:40 Antibody Screen Negative 06/08/24 06:40 Screen Negative (Negative) 06/06/24 01:44 Vitals Last Vital Signs Temp 99.5 F 06/08/24 05:30 Pulse 85 06/08/24 05:30 Resp 17 06/08/24 05:30 BP 138/81 06/08/24 05:30 Pulse Ox 99 06/08/24 05:30 O2 Del Method Room Air 06/08/24 05:30 Results Labs OB ([facility]): Obstetrics US 02/18/24 Blood Type O Negative 06/08/24 Antibody Screen Negative 06/08/24 Hct 27.1 % (36-47) L 06/07/24 Hgb 8.60 g/dL (11.27-16.99) L 06/07/24 Rho(D) Type Rh negative 06/08/24 Plt Count 228 10^3/cmm (157-399) 06/07/24 Hep Bs Antigen Non-reactive (Nonreactive) 11/05/23 Hepatitis C Antibody Non-reactive (Nonreactive) 11/05/23 Rubella IgG Antibody 161.1 IU/mL (0.0-10.0) H 11/05/23 RPR Nonreactive (Nonreactive) 11/05/23 HIV 1&2 Ab & HIV 1 Ag Non-reactive (Non-Reactiv) 11/05/23 TSH 0.93 uIU/mL (0.27-4.20) 11/05/23 Free T4 1.19 ng/dL (0.82-1.77) 11/05/23 C.trachomatis RNA (TMA) Not detected (NOT DETECTED) N.gonorrhoeae RNA (TMA) Not detected (NOT DETECTED) T. vaginalis Amp RNA Not detected (NOT DETECTED) 02/18/24 Chlamydia/GC Comment See note 02/18/24 Glucose 1 Hr 50 gm 129 mg/dL (85-140) 02/18/24 Ser , Semi-Qnt 36327.00 mIU/mL 10/18/23 Urine Opiates Screen Negative ng/mL (Negative) 11/05/23 Ur Barbiturates Screen Negative ng/mL (Negative) 11/05/23 Ur Phencyclidine Scrn Negative ng/mL (Negative) 11/05/23 Ur Amphetamines Screen Negative ng/mL (Negative) 11/05/23 U Benzodiazepines Scrn Negative ng/mL (Negative) 11/05/23 Urine Cocaine Screen Negative ng/mL (Negative) 11/05/23 U Marijuana (THC) Screen Negative ng/mL (Negative) 11/05/23 Micro Urine Specimen 11/05/23 Pap Smear Interpret See note 11/26/23 Discharge Plan Discharge Patient Disposition: Home Condition: Stable Prescriptions: New hydrocodone-acetaminophen 5-325 mg tablet 1 tab PO Q4H PRN (Reason: pain) Qty: 30 0RF acetaminophen 325 mg capsule 325 mg PO Q4H PRN (Reason: fever or pain) Qty: 60 0RF docusate sodium [Colace] 100 mg capsule 100 mg PO BID Qty: 60 0RF ferrous sulfate [Iron (ferrous sulfate)] 325 mg (65 mg iron) tablet 325 mg PO BID Qty: 60 0RF ibuprofen 800 mg tablet 800 mg PO TID PRN (Reason: pain) Qty: 60 0RF Continued Gummies 400 mcg-35 mg- 25 mg-5 mg tablet,chewable 1 tab PO DAILY Discharge Orders: Discharge Order (Routine); Ordered 06/08/24 Ordered By: Prudencio Mason Referrals: Boris Mason MD [Physician] - 2 weeks Discharge Diet: Usual diet Discharge Activity: Limit activity as instructed Patient Instructions: Depression (DC), Opioid Safety (DC), Preeclampsia and Eclampsia After Delivery (GEN), Hemorrhage (DC), OB [facility], OB Discharge Report, OB Food/Drug Interaction Guide, Opioid Safety, OB Home Care, Abnormal Bleeding Activity Restrictions/Additional Instructions: 1. Please call [facility] on next working day to make your post-operative appointment in 2 weeks. 2. Please stay home until you come back to the clinic on first post- hospatilization check up. 3. Please follow instructions on your medications CAREFULLY. 4. If you have abdominal incision, do not cover it unless dressing is necessary because of drainage. OK to shower, but avoid bath. Leave steri-strips until they fall off. If they are still on one week after surgery, you may remove them. 5. If you had vaginal surgery or vaginal repair, Dr. Mason may instruct you to take SITZ bath. 6. Yellow, blood tinged odorous vaginal discharge is usually normal after hysterectomy or vaginal surgeries. 7. No SEXUAL INTERCOURSE, tampons, or douches until you are completely released from the post-operative care. 8. Avoid constipation by eating right and maybe using some Metamucil or Milk of Magnesia. 9. All prescription refills are given during the working hours. Please do no wait till it runs out. Call the clinic at [phone] before your medication runs out. The clinic will get in touch with your doctor to prescribe medications if necessary. 10. Please remain within 40 mile radius from our hospital because emergencies do happen now and then during the post-operative period. 11. If you have stairs at home, take one step at a time slowly and minimize the number of trips. It helps to stay in one floor for the next few days. No lifting except what you can lift by one hand until you are released from the post-operative care. 12. Driving is discouraged until you are well healed. It may be 3-4 weeks before you feel strong enough to drive. You should be able to turn and look through the rear window without pain and you should be able to push the brake pedal very hard without pain before you drive. No fast rules, but SAFETY should be your primary concern. DO NOT drive if you are on sedating medications such as narcotics. 13. Call the clinic (during working hours) to make urgent appointment or go to the Emergency room, if any of the following occurs: i. Vaginal bleeding becomes heavy, more than a period. ii. Incision becomes red and sore, or drains pus. iii. Your TEMPERATURE is over 100.4F or you have chill. iv. IV site becomes red and swollen (a little ``knot?? is usually OK) v. Persistent nausea and vomiting vi. Persistent constipation or diarrhea vii. Rash or allergic reaction to medications. 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
[2024-06-08 11:00] VITALS: BP 133/83; PULSE 83; RESP 16; TEMP 36.8; O2SAT 99
[2024-06-08 11:53] VITALS: BP 138/83; PULSE 83; RESP 16; TEMP 36.8; O2SAT 99
[2024-06-08 13:30] VITALS: BP 131/81; PULSE 76; RESP 16; TEMP 36.8; O2SAT 98
[2024-06-08 13:32] VITALS: BP 131/81; PULSE 76; RESP 16; TEMP 36.8; O2SAT 98
== END 2024-06-08 13:32 | disposition home or self-care (01) | DRG 788 ==
LOC: OPOB 02:23 → OBGYN 02:23
PROVIDERS: Admitting Provider Obstetrics & Gynecology; Visit Provider Obstetrics & Gynecology
PROC: 10D00Z1 Extraction of Products of Conception, Low, Open Approach (ICD-10-PCS; CPT 59514; principal; 2024-06-06 12:30)
DX: O62.2 Other uterine inertia (principal); Z3A.39 39 weeks gestation of pregnancy; Z37.0 Single live birth; O77.0 Labor and delivery complicated by meconium in amniotic fluid
CPT/HCPCS: 36415; 36430; 51702; 59025; 59409; 85025; 85027; 85460; 86850; 86900; 90384; 96374; 96376; 99211; J0690; J1885; J2274; J2405; J2590; J2765; J2795; J3010; J3490; J7030; J7120; J7121